=== PATIENT | female | born 1985 | race Caucasian/White ===

== ENCOUNTER 2020-02-23 16:12 | Inpatient (IN) | payer BC ==
[~2020-02-23] VITALS: Ht 162.6 cm; Wt 75.7 kg
[2020-02-23 16:12] VITALS: BP_SYST 137
--- NOTE | 2020-02-23 16:12 | NUR ---
ASSISTED OUT OF CAR TO WHEELCHAIR, PLACED IN HALLWAY BED AND REPORT GIVEN TO PAULIE
--- NOTE | 2020-02-23 16:38 | NUR ---
pt arrives from home. States that she was "twisted" her back and felt a pop on her lower back. She is currently unable to walk d/t the pain.
--- NOTE | 2020-02-23 16:40 | NUR ---
ER at bedside examining patient.
[2020-02-23] MEDS ORDERED: MORPHINE 2 MG/ML INJ. SYRINGE IM ONE ×2 (16:45→18:00)
--- NOTE | 2020-02-23 16:51 | NUR ---
medicated w/ Morphine per MD order. Will reasses
--- NOTE | 2020-02-23 17:40 | NUR ---
pt moved h1 to ER 2
--- NOTE | 2020-02-23 18:05 | NUR ---
medicated w/ Morphine IM per MD order. Will reassess
--- NOTE | 2020-02-23 19:03 | NUR ---
care endorsed to the oncoming shift
[2020-02-23] MEDS ORDERED: MORPHINE 2 MG/ML INJ. SYRINGE ONE (20:03)
[2020-02-23] MEDS ORDERED: KETOROLAC TROMETHAMINE 30 MG VIAL ONE (23:37)
[2020-02-24] MEDS ORDERED: HYDROcodone/ACETAMIN 10-325 MG TAB ONE ×2 (06:46→11:17)
--- NOTE | 2020-02-24 07:32 | NUR ---
OPENING NOTE Patient resting in the bed. No acute distress. AAO x 4. Denied of pain at this time. Skin warm and dry to touch. SL intact to LAC, no redness, no swelling, patent. Safety measure maintained. Call light within reached. Bed locked in low position, side rails up, bed alarm on. Will continue to monitor.
[2020-02-24 07:40] VITALS: BP_SYST 140
--- NOTE | 2020-02-24 09:52 | NUR ---
SEEN AND EXAMINED BY ALBA HUGO.
--- NOTE | 2020-02-24 11:05 | NUR ---
NORCO GIVEN Patient c/o back pain 11/14, [place] 10/325mg 1 tab given as ordered. Safety measure maintained. Call light within reached. Continue to monitor.
[2020-02-24] MEDS ORDERED: MORPHINE 2 MG/ML INJ. SYRINGE IVP PRN (11:45)
--- NOTE | 2020-02-24 11:55 | NUR ---
OFF UNIT TO MRI LUMBER VIA GURNEY IN STABLE CONDITION.
[2020-02-24] MEDS ORDERED: HYDROcodone/ACETAMIN 5-325 MG TAB (NORCO/ VICODIN) PO PRN (12:00)
[2020-02-24 12:44] VITALS: BP_SYST 100
--- NOTE | 2020-02-24 12:50 | NUR ---
BACK FROM [place] IN ST[place] CONDITION.
--- NOTE | 2020-02-24 15:00 | NUR ---
ROUND Patient resting in the bed. No acute distress. Safety measure maintained. Call light within reached. Continue to monitor.
--- NOTE | 2020-02-24 15:38 | NUR ---
ATTENDING MD DR AGUIRRE WAS CALLED, RE: PT IS NAUSEOUS. SPOKE TO NATALIE.
[2020-02-24 16:39] VITALS: BP_SYST 103
--- NOTE | 2020-02-24 16:49 | NUR ---
P.T. NOTES P.T. EVAL COMPLETED; REFER TO EVAL FOR DETAILS.
[2020-02-24] MEDS: HYDROcodone/ACETAMIN 10-325 MG TAB PO PRN ×2 (17:48→22:04)
--- NOTE | 2020-02-24 18:55 | NUR ---
CLOSING NOTE Patient resting in the bed. No acute distress. PRN pain med given as needed. Skin warm and dry to touch. SL intact to LAC, no redness, no swelling, patent. All needs met. Safety measure maintained. Call light within reached. Bed locked in low position, side rails up, bed alarm on. Will endorse to night nurse.
--- NOTE | 2020-02-24 19:30 | NUR ---
CHANGE OF SHIFT: pt. awake, being attended by CODING ADVISOR to use BSC. still noted with lower back pain, was just medicated before change of shift. call light within reach.
--- NOTE | 2020-02-24 20:45 | NUR ---
NOTES: pt. resting, quiet. still not due for pain med. informed pt. will give when its time and verbalized understanding. IV lock.
[2020-02-24 21:00] VITALS: BP_SYST 100
--- NOTE | 2020-02-24 22:04 | NUR ---
NOTES: pt. medicated with [place] po for c/o lower back pain. repositioned self. call light within reach.
--- NOTE | 2020-02-24 23:05 | NUR ---
NOTES: pt. checked and noted relief from pain. repositioned self. kept warm with blanket.
[2020-02-25] VITALS: BP_SYST 94
--- NOTE | 2020-02-25 00:01 | NUR ---
NOTES: pt. asleep. no resp. distress. call light at bedside.
--- NOTE | 2020-02-25 02:15 | NUR ---
NOTES: pt. remain sleeping. condition observed.
--- NOTE | 2020-02-25 03:45 | NUR ---
NOTES: condition continue to monitor. pt. sleeping.
--- NOTE | 2020-02-25 04:08 | NUR ---
CONSULT REASON FOR CONSULT: BACK PAIN SENT A MESSAGE TO DR. ROSENTHAL THAT HE HAS A CONSULT REQUESTING PHYSICIAN: DR. AGUIRRE
--- NOTE | 2020-02-25 05:30 | NUR ---
NOTES: pt. checked, no further complaints. condition unchanged.
[2020-02-25] MEDS: HYDROcodone/ACETAMIN 10-325 MG TAB PO PRN ×3 (06:49→18:09)
--- NOTE | 2020-02-25 06:49 | NUR ---
CLOSING NOTES; late entry pt. medicated for c/o lower back and headache. no resp. distress. pt. needs attended. IV lock patent on rt. ac. for further care and assistance. call light within reach.
--- NOTE | 2020-02-25 07:35 | NUR ---
OPENING NOTE Patient resting in the bed. No acute distress. AAO x 4. Skin warm and dry to touch. SL intact to LAC, no redness, no swelling, patent. Discussed the safety issue, use call light when needs help, and plan of care. Safety measure maintained. Call light within reached. Bed locked in low position, side rails up, bed alarm on. Will continue to monitor.
[2020-02-25 07:55] VITALS: BP_SYST 103
--- NOTE | 2020-02-25 09:28 | NUR ---
MORPHINE GIVEN Patient c/o back pain /, Morphine 2mg IVP given as ordered. Patient resting in the bed. No acute distress. Safety measure maintained. Call light within reached. Continue to monitor.
[2020-02-25] MEDS ORDERED: CYCLOBENZAPRINE HCL 10 MG TABLET (FLEXERIL) PO ONE (10:30)
--- NOTE | 2020-02-25 10:46 | NUR ---
PT SERVICE DONE TO PATIENT.
--- NOTE | 2020-02-25 10:52 | NUR ---
SEEN AND EXAMINED BY ERMA HUGO WITH ORDER RECEIVED.
[2020-02-25 11:20] LABS: BASOPHILS % (AUTO) 0.7 % (0.0-2.0); EOSINOPHILS # (AUTO) 0.1 K/uL (0.0-0.4); EOSINOPHILS % (AUTO) 1.7 % (0.0-4.0); HEMATOCRIT 34.5 % (36-48); HEMOGLOBIN 11.4 g/dL (12.0-16.0); LYMPHOCYTES # (AUTO) 1.7 K/uL (1.0-5.5); LYMPHOCYTES % (AUTO) 27.8 % (20.5-51.5); MEAN CORPUSCULAR HEMOGLOBIN 28 pg (27-31); MEAN CORPUSCULAR HGB CONC 33 % (32-36); MEAN CORPUSCULAR VOLUME 83 fL (79.0-98.0); MONOCYTES # (AUTO) 0.5 K/uL (0.0-1.0); MONOCYTES % (AUTO) 8.2 % (1.7-9.3); NEUTROPHILS # (AUTO) 3.8 K/uL (1.8-7.7); NEUTROPHILS % (AUTO) 61.6 % (40.0-70.0); PLATELET COUNT (AUTO) 273 K/uL (130-430); RED BLOOD CELL COUNT(AUTO) 4.14 MIL/uL (4.2-6.2); RED CELL DISTRIBUTION WIDTH 14.6 % (9.0-15.0); WHITE BLOOD COUNT (AUTO) 6.2 K/uL (4.8-10.8)
[2020-02-25 11:42] LABS: CALCIUM 8.3 mg/dL (8.4-11.0); CREATININE 0.56 mg/dL (0.55-1.30); POTASSIUM 3.9 mmol/L (3.5-5.1)
[2020-02-25 11:53] LABS: ALBUMIN 3.6 g/dL (3.4-4.8); TOTAL BILIRUBIN 0.3 mg/dL (0.0-1.0)
[2020-02-25 12:40] VITALS: BP_SYST 109
--- NOTE | 2020-02-25 13:32 | NUR ---
NORCO GIVEN Patient c/o back pain 12/15, [place] 10/325mg 1 tab given as ordered. Safety measure maintained. Call light within reached. Continue to monitor.
[2020-02-25] MEDS: CYCLOBENZAPRINE HCL 10 MG TABLET (FLEXERIL) PO SCH ×2 (15:11→21:11)
--- NOTE | 2020-02-25 15:35 | NUR ---
BEDSIDE COMMODE Assisted patient transfer to bedside commode, void with yellow urine. No hematuria/dysuria noted. Patient using walker during transfer from bed to commode. Assisted back to bed. No acute distress. Safety measure maintained. Call light within reached. Bed locked in low position, side rails up, bed alarm on. Continue to monitor.
[2020-02-25 16:27] VITALS: BP_SYST 98
--- NOTE | 2020-02-25 19:30 | NUR ---
CHANGE OF SHIFT: pt. asleep, was just given pain medication. no resp. distress. call light within reach.
[2020-02-25 21:00] VITALS: BP_SYST 104; BP_SYST 140
--- NOTE | 2020-02-25 21:15 | NUR ---
NOTES: pt. awakened. VS checked. due medication given. BSC placed on the right side. instructed to call if help needed. pain med not due yet.
--- NOTE | 2020-02-25 23:00 | NUR ---
NOTES: pt. sleeping when rechecked.
--- NOTE | 2020-02-26 00:01 | NUR ---
NOTES: still asleep. no distress noted, on room air.
[2020-02-26 01:00] VITALS: BP_SYST 102
[2020-02-26] MEDS: HYDROcodone/ACETAMIN 10-325 MG TAB PO PRN ×3 (01:54→13:30)
--- NOTE | 2020-02-26 01:54 | NUR ---
NOTES: pt. called c/o lower back pain, medicated with [place] po. repositioned self.
--- NOTE | 2020-02-26 03:00 | NUR ---
NOTES: pt. checked and sleeping. no distress.
--- NOTE | 2020-02-26 04:45 | NUR ---
NOTES: remain sleeping. call light at bedside. continue to monitor.
--- NOTE | 2020-02-26 06:31 | NUR ---
CLOSING NOTES; condition unchanged. still pain medication prn for low back pain. for further care and assistance. pt. still sleeping when rechecked. call light within reach.
--- NOTE | 2020-02-26 07:30 | NUR ---
OPENING NOTES: RECEIVED PATIENT FROM SEAL SKINNER NURSE. PATIENT IS AWAKE AND ALERT x4 LAYING DOWN IN BED. PATIENT IS TOLERATING OXYGEN ON ROOM AIR IWTH NO SIGNS OF DISTRESS OR SHORTNESS OF BREATH NOTED. PATIENT STATES SHE HAS PAIN 10/14. PRN PAIN MEDICATION TO BE GIVEN. IV SITE IS PATENT WITH NO SIGNS OF INFILTRATION NOTED, Addendum: 02/26/20 at 0845 by Jacquie Holguin RN SUBMITTED TO EARLY- PATIENT IN STABLE CONDITION. SAFETY, FALL AND ASPIRATION PRECAUTIONS ARE IN PLACE. BED LOCKED IN LOWEST POSITION WITH CALL LIGHT IN REACH. WILL CONTINUE TO MONITOR PATIENT FOR ANY CHANGES.
[2020-02-26 08:33] VITALS: BP_SYST 114
[2020-02-26] MEDS: CYCLOBENZAPRINE HCL 10 MG TABLET (FLEXERIL) PO SCH ×3 (08:35→20:40)
--- NOTE | 2020-02-26 10:12 | NUR ---
RN ROUNDS: PATIENT IS ASLEEP LAYING DOWN IN BED. PATIENT IS TOLERATING OXYGEN ON ROOM AIR WITH NO SIGNS OF DISTRESS OR SHORTNESS OF BREATH NOTED. IV SITE IS PATENT WITH NO SIGNS OF INFILTRATION NOTED. PATIENT IN STABLE CONDITION. WILL CONTINUE TO MONITOR PATIENT FOR ANY CHANGES.
--- NOTE | 2020-02-26 10:51 | NUR ---
Nutrition Update Don Scale 18 noted. Pt admitted for intractable back pain. Diet: regular BMI: 28.7 kg/m2 RD to follow per nutrition care standards.
[2020-02-26] MEDS ORDERED: ACETAMINOPHEN 325 MG TABLET PO PRN (11:45)
[2020-02-26] MEDS ORDERED: ACETAMINOPHEN 325 MG TABLET ONE (12:20)
--- NOTE | 2020-02-26 12:25 | NUR ---
RN ROUNDS: PATIENT IS AWAKE AND ALERT x4 LAYING DOWN IN BED. PATIENT IS TOLERATING OXYGEN ON ROOM AIR WITH NO SIGNS OF DISTRESS OR SHORTNESS OF BREATH NOTED. IV SITE IS PATENT WITH NO SIGNS OF INFILTRATION NOTED. PATIENT IN STABLE CONDITION. WILL CONTINUE TO MONITOR PATIENT FOR ANY CHANGES.
[2020-02-26 12:34] VITALS: BP_SYST 109
--- NOTE | 2020-02-26 14:02 | NUR ---
RN ROUNDS: PATIENT IS ASLEEP LAYING DOWN IN BED. PATIENT AWAKES WITH VERBAL RESPONSE. PATIENT IS TOLERATING OXYGEN ON ROOM AIR WITH NO SIGNS OF DISTRESS OR SHORTNESS OF BREATH NOTED. IV SITE IS PATENT WITH NO SIGNS OF INFILTRATION NOTED. PATIENT IN STABLE CONDITION. WILL CONTINUE TO MONITOR PATIENT FOR ANY CHANGES.
[2020-02-26 16:09] VITALS: BP_SYST 116
--- NOTE | 2020-02-26 18:41 | NUR ---
CLOSING NOTES: PATIENT IS ASLEEP LAYING DOWN IN BED. PATIENT IS TOLERATING OXYGEN ON ROOM AIR WITH NO SIGNS OF DISTRESS OR SHORTNESS OF BREATH NOTED. IV SITE IS PATENT WITH NO SIGNS OF INFILTRATION NOTED. PATIENT IN STABLE CONDITION. SAFETY, FALL AND ASPIRATION PRECAUTIONS REMAINED IN PLACE THROUGHOUT THE SHIFT. BED LOCKED IN LOWEST POSITION WITH CALL LIGHT IN REACH. WILL ENDORSE PATIENT CARE TO ONCOMING VETERINARY PATHOLOGIST NURSE.
--- NOTE | 2020-02-26 19:05 | NUR ---
Report was received from day shift nurse. Pt is fully awake, alert and oriented x4. No acute distress noted and no c/o pain or discomfort. Saline lock in RAC is without any signs of infiltration. Fall and safety precautions are in place.
[2020-02-26 20:00] VITALS: BP_SYST 110
--- NOTE | 2020-02-26 20:40 | NUR ---
Scheduled HS medication given. HS snacks consisting of Jello and Saltine crackers given to pt per her request. Fall and safety precautions are in place.
--- NOTE | 2020-02-26 23:00 | NUR ---
Pt is awake and resting quietly in bed. No c/o pain or discomfort. Call light is with pt and bed is in the lowest/locked positions.
[2020-02-27] VITALS: BP_SYST 114
--- NOTE | 2020-02-27 01:35 | NUR ---
Pt is sleeping without any respiratory distress noted. Fall and safety precautions are in place.
--- NOTE | 2020-02-27 03:30 | NUR ---
Pt is sleeping comfortably in bed. Fall and safety precautions are in place.
--- NOTE | 2020-02-27 05:00 | NUR ---
Pt is resting quietly in bed. No c/o pain or discomfort. Fall and safety precautions are n place.
[2020-02-27] MEDS: HYDROcodone/ACETAMIN 10-325 MG TAB PO PRN ×3 (06:29→18:43)
--- NOTE | 2020-02-27 06:29 | NUR ---
[place] 10/325mg 1 tablet given po per pt's request for c/o 8/10 low back pain. Pt instructed not to get out of bed without calling for assistance if she feels dizzy or drowsy and pt verbalized understanding. Fall and safety precautions are in place.
--- NOTE | 2020-02-27 06:54 | NUR ---
Pt is awake and resting comfortably in bed. All pt's needs were attended to. Saline lock is intact in RAC. Fall and safety precautions are in place. Will endorse to day shift nurse.
--- NOTE | 2020-02-27 07:30 | NUR ---
OPENING NOTES: RECEIVED PATIENT FROM CAN LABELER NURSE. PATIENT IS AWAKE AND ALERT x4 LAYING DOWN IN BED. PATIENT IS TOLERATING OXYGEN ON ROOM AIR WITH NO SIGNS OF DISTRESS OR SHORTNESS OF BREATH NOTED. IV SITE IS PATENT WITH NO SIGNS OF INFILTRATION NOTED. PATIENT STATES HER PAIN IS TOLERABLE AT THE MOMENT. PATIENT IN STABLE CONDITION. SAFETY, FALL AND ASPIRATION PRECAUTIONS ARE IN PLACE. BED LOCKED IN LOWEST POSITION WITH CALL LIGHT IN REACH. WILL CONTINUE TO MONITOR PATIENT FOR ANY CHANGES.
[2020-02-27 08:01] VITALS: BP_SYST 117
[2020-02-27] MEDS: CYCLOBENZAPRINE HCL 10 MG TABLET (FLEXERIL) PO SCH ×3 (08:08→21:57)
[2020-02-27 12:10] VITALS: BP_SYST 105
--- NOTE | 2020-02-27 12:25 | NUR ---
RN ROUNDS: PATIENT IS AWAKE AND ALERT x4 LAYING DOWN IN BED. PATIENT IS TOLERATING OXYGEN ON ROOM AIR WITH NO SIGNS OF DISTRESS OR SHORTNESS OF BREATH NOTED. PATIENT WAS INSTRUCTED TO LET ME KNOW WHEH SHE IS READY TO GET UP AND WALK AROUND. IV SITE IS PATENT WITH NO SIGNS OF INFILTRATION NOTED. PATIENT IN STABLE CONDITION. WILL CONTINUE TO MONITOR PATIENT FOR ANY CHANGES.
[2020-02-27 12:35] LABS: BILIRUBIN,URINE NEGATIVE (NEGATIVE); CLARITY/URINE CLEAR (CLEAR); COLOR,URINE YELLOW (YELLOW); GLUCOSE,URINE NEGATIVE (NEGATIVE); KETONES,URINE NEGATIVE (NEGATIVE); PROTEIN URINE NEGATIVE (NEGATIVE)
[2020-02-27 12:36] LABS: BLOOD, URINE TRACE (NEGATIVE); LEUKOCYTE ESTERASE ,URINE 1+ (NEGATIVE); NITRITE, URINE NEGATIVE (NEGATIVE); UROBILINOGEN,URINE 0.2 (0.2-1.0)
[2020-02-27 12:38] LABS: BACTERIA,URINE FEW /HPF (None Seen)
--- NOTE | 2020-02-27 14:23 | NUR ---
RN ROUNDS: PATIENT IS AWAKE AND ALERT x4 LAYING DOWN IN BED. PATIENT WAS ASSISTED UP OUT OF BED AND ABLE TO WALK WITH A WALKER TO THE RESTROOM. PATIENT TOLERATED IT WELL. IV SITE IS PATENT WITH NO SIGNS OF INFILTRATION NOTED. PATIENT IS TOLERATING OXYGEN ON ROOM AIR WITH NO SIGNS OF DISTRESS OR SHORTNESS OF BREATH NOTED. PATIENT IN STABLE CONDITION. WILL CONTINUE TO MONITOR PATIENT FOR ANY CHANGES.
[2020-02-27 16:22] VITALS: BP_SYST 117
--- NOTE | 2020-02-27 16:40 | NUR ---
RN ROUNDS: PATIENT IS AWAKE AND ALERT x4 LAYING DOWN IN BED. PATIENT IS TOLERATING OXYGEN ON ROOM AIR WITH NO SIGNS OF DISTRESS OR SHORTNESS OF BREATH NOTED. PATIENT STATES HER PAIN IS TOLERABLE AT THE MOMENT. FOOD BROUGHT IN FROM FAMILY WAS GIVEN TO PATIENT. IV SITE IS PATENT WITH NO SIGNS OF INFILTRATION NOTED. PATIENT IN STABLE CONDITION. WILL CONTINUE TO MONITOR PATIENT FOR ANY CHANGES.
--- NOTE | 2020-02-27 18:31 | NUR ---
CLOSING NOTES: PATIENT IS ASLEEP LAYING DOWN IN BED. PATIENT IS TOLERATING OXYGEN ON ROOM AIR WITH NO SIGNS OF DISTRESS OR SHORTNESS OF BREATH NOTED. IV SITE IS PATENT WITH NO SIGNS OF INFILTRATION NOTED. PATIENT IN STABLE CONDITION. SAFETY, FALL AND ASPIRATION PRECAUTIONS REMAINED IN PLACE THROUGHOUT THE SHIFT. BED LOCKED IN LOWEST POSITION WITH CALL LIGHT IN REACH. WILL ENDORSE PATIENT CARE TO ONCOMING LEGAL CLERK NURSE.
--- NOTE | 2020-02-27 19:10 | NUR ---
Bedside report received from day shift nurse. Pt is lying in bed fully awake, alert and oriented x4. No acute distress noted and no c/o pain or discomfort. Saline lock in RAC is without any signs of infiltration. Fall and safety precautions are in place.
[2020-02-27 20:00] VITALS: BP_SYST 104
--- NOTE | 2020-02-27 21:00 | NUR ---
Pt remains fully AAO x4. No c/o pain or discomfort. Fall and safety precautions are in place.
--- NOTE | 2020-02-27 23:00 | NUR ---
Pt is sleeping at this time. No respiratory distress noted. Fall and safety precautions are in place.
[2020-02-28] VITALS: BP_SYST 98
--- NOTE | 2020-02-28 01:00 | NUR ---
Pt is sleeping without any respiratory distress noted. Fall and safety precautions are in place.
--- NOTE | 2020-02-28 02:33 | NUR ---
Pt is sleeping comfortably in bed. Fall and safety precautions are in place.
--- NOTE | 2020-02-28 04:30 | NUR ---
Pt continues to sleep without any distress. Fall and safety precautions are in place.
[2020-02-28] MEDS: HYDROcodone/ACETAMIN 10-325 MG TAB PO PRN ×2 (06:28→13:38)
--- NOTE | 2020-02-28 06:28 | NUR ---
[place] 10/325mg 1 tablet given po per pt's request for c/o 9/10 low back pain. Pt instructed not to get out of bed without calling for assistance if she feels dizzy or drowsy and pt verbalized understanding. Fall and safety precautions are in place.
[2020-02-28 08:00] VITALS: BP_SYST 109
--- NOTE | 2020-02-28 08:00 | NUR ---
AMM NOTES PT IN BED. A/OX4. C/O OF LOWER BACK PAIN 10/14. RES EVEN AND UNLABORED . NOT IN ACUTE DISTRESS. SAFETY AND FALL PRECAUTIONS IN PLACE. POC DISCUSSED WITH PT VERBALIZED UNDERSTANDING. WILL CONITNUE TO MONITTOR
[2020-02-28] MEDS: CYCLOBENZAPRINE HCL 10 MG TABLET (FLEXERIL) PO SCH ×2 (08:39→16:01)
[2020-02-28] MEDS ORDERED: SENN-234 PO (10:13)
[2020-02-28] MEDS ORDERED: MINERAL OIL 30 ML UDC PO ONE (10:15)
[2020-02-28] MEDS ORDERED: MAGNESIUM CITRATE 300 ML ORAL SOLUTION PO ONE (10:15)
[2020-02-28 11:58] VITALS: BP_SYST 101
--- NOTE | 2020-02-28 12:00 | NUR ---
ROUNDS PT STABLE NOTIN ACUTE DISTRESS. STILL HAVE BACK PAIN. PT C/O OF CONSTIPATION DR AUGIRRE NOTIFIED. MINERAL OIL AND MG CITRATE PO MEDICATION GIVEN ORDERED. WAITING FOR PT TO HAVE BOWEL MOVEMENT. PT AMBULATED TO BATHROOM WITH FWW STEADY GAIT. WILL CONTINUE TO MONITOR
--- NOTE | 2020-02-28 13:38 | NUR ---
C/O OF PAIN PT C/O OF BACK PAIN 11/14. MEDICATED WITH NORCO 10 MG PO ORDERED. PT STILL HAVE NO BOWEL MOVEMENT. ENCOURAGED D PT TO DRINK FLUIDS. WILL CONTINUE TO MONITOR
[2020-02-28 16:00] VITALS: BP_SYST 103
--- NOTE | 2020-02-28 16:00 | NUR ---
PRESCRIPTION PRESCRIPTION OF FLEXERIL AND NORCO GIVEN TO PT.
[2020-02-28 16:25] VITALS: BP_SYST 103
--- NOTE | 2020-02-28 17:28 | NUR ---
FWW ORDER CALLED HCP CARGO WORKER .SPOKE TO [employer]IOR HCP CASE MANAGE FOR ORDER FOR FWW. SHE SAID SHE IS WORKING ON IT PT WANTED HER FWW DELIVER TO HER HOME. YUNIOR HCP CARGO WORKER SAID SHE WILL CALL BACK FOR ETA FOR FWW.
--- NOTE | 2020-02-28 18:24 | NUR ---
[facility] CALLED WALKER TO BE DELIVER AROUND 7 PM. PT NOTIFIED. OK WITH IT.
--- NOTE | 2020-02-28 19:00 | NUR ---
CLOSING NOTES PT STABLE NOT IN ACUTE DISTRESS. WAITING FOR WALKER FOR DISCHARGE .REPORT GIVEN FAITH KUMARI
--- NOTE | 2020-02-28 19:15 | NUR ---
opening note Received patient awake, AOx4, resting in bed, no distress and non labored breathing. She is ready to go home and reports her ride is outside. She was informed her walker just arrived, we will print her discharge information then she will be wheeled out.
--- NOTE | 2020-02-28 19:45 | NUR ---
Discharge Patient given medication reconciliation form and D/C instructions. Exit Care provided. Patient verbalized understanding. MD discussed with patient the results and treatment provided. Ambulatory with assist to wheel chair for discharge to home. Patient in stable condition, ID band removed. IV catheter removed, intact and dressing applied, no active bleeding. Rx of [place] 5-325 and Flexeril 10mg given. Patient educated on pain management. All belongings sent with patient. FWW was at front dest and given to patient.
== END 2020-02-28 19:45 | disposition home or self-care (01) | DRG 552 ==
LOC: SED 16:12 → SMU 23:00
PROVIDERS: ADMIT Internal Medicine Hospice and Palliative Medicine; ATTEND Internal Medicine Hospice and Palliative Medicine
DX: M51.16 Intervertebral disc disorders with radiculopathy, lumbar region (principal); M62.830 Muscle spasm of back; S39.012A Strain of muscle, fascia and tendon of lower back, initial encounter; X58.XXXA Exposure to other specified factors, initial encounter; Y93.89 Activity, other specified; Y92.89 Other specified places as the place of occurrence of the external cause; Y99.8 Other external cause status
CPT/HCPCS: 36415; 72131; 72148; 76376; 80053; 81000-TC; 84703; 85025; 87086; 97110-GP; 97112-GP; 97116-GP; 97530-GP; 99285; J1885; J2270